=== PATIENT | female | born 1995 | race Caucasian/White ===

== ENCOUNTER 2019-02-12 17:22 | Emergency (ER) | payer OTHER ==
[~2019-02-12] VITALS: Ht 170.2 cm; Wt 108.9 kg
[~2019-02-12 17:22] MED LIST: OXCARBAZEPINE300 MG PO; SERTRALINE HCL50 MG PO; THIORIDAZINE HC50 M1 PO; TRAZODONE HCL50 MG
[2019-02-12 18:06] LABS: INFLUENZA A ANTIGEN Negative (Negative); INFLUENZA B ANTIGEN Negative (Negative)
[2019-02-12] MEDS ORDERED: AZITHROMYCIN500 MG PO ×2 (19:02→19:17)
[2019-02-12] MEDS ORDERED: CIPROFLOXIN HC2.5 M1 OPHTHALMIC ×2 (19:02→19:17)
[2019-02-12 19:05] VITALS: BP 115/80
== END 2019-02-12 19:06 | disposition home or self-care (01) ==
LOC: M.ERS 17:22
PROVIDERS: Nurse Practitioner Family
DX: J06.9 Acute upper respiratory infection, unspecified (principal); H10.9 Unspecified conjunctivitis; F31.9 Bipolar disorder, unspecified; F90.9 Attention-deficit hyperactivity disorder, unspecified type; F17.210 Nicotine dependence, cigarettes, uncomplicated; Z98.890 Other specified postprocedural states

== ENCOUNTER 2019-12-17 10:45 | Emergency (ER) | payer OTHER ==
[~2019-12-17] VITALS: Ht 170.2 cm; Wt 98.0 kg
[~2019-12-17 10:45] MED LIST changes: +AZITHROMYCIN500 MG PO; +CIPROFLOXIN HC2.5 M1 OPHTHALMIC
[2019-12-17 11:05] LABS: ABSOLUTE BASOPHILS 0.1 thou/uL (0.0-0.2); ABSOLUTE EOSINOPHILS 0.1 thou/uL (0.0-0.7); ABSOLUTE LYMPHOCYTES 1.7 thou/uL (0.8-5.3); ABSOLUTE MONOCYTES 0.4 thou/uL (0.0-1.2); ABSOLUTE NEUTROPHILS 4.2 thou/uL (1.6-8.1); BASOPHILS 0.9 %; EOSINOPHILS 2.1 %; HEMATOCRIT 45.4 % (37.0-47.0); HEMOGLOBIN 15.6 gm/dL (12.0-15.0); LYMPHOCYTES 25.7 %; MCH 28.4 pg (26.0-34.0); MCHC 34.3 g/dL (28.0-37.0); MCV 82.9 fL (80.0-100.0); MONOCYTES 5.5 %; MPV 13.1 fl. (7.2-11.1); NUCLEATED RBCS 0 /100WBC; PLATELET COUNT* 106 thou/uL (150-400); POLYS 65.8 %; RBC 5.48 mil/uL (4.20-5.00); WBC 6.4 thou/uL (4.0-11.0)
[2019-12-17 11:16] LABS: CREATININE 0.9 mg/dL (0.6-1.3)
[2019-12-17 11:18] LABS: TOTAL BILIRUBIN 0.3 mg/dL (<0.1-1.0); TOTAL PROTEIN 7.2 g/dL (6.4-8.2)
[2019-12-17 11:22] LABS: URINE BILIRUBIN NEGATIVE (Negative); URINE BLOOD 1+ (Negative); URINE CLARITY CLEAR; URINE COLOR YELLOW; URINE GLUCOSE-RANDOM NEGATIVE (Negative); URINE KETONES NEGATIVE (Negative); URINE LEUKOCYTES-REFLEX NEGATIVE (Negative); URINE NITRITE-REFLEX NEGATIVE (Negative); URINE PROTEIN NEGATIVE (Negative); URINE SPECIFIC GRAVITY >= 1.030 (1.005-1.030); URINE UROBILINOGEN 0.2 E.U./dl (0.2-1.0)
[2019-12-17 11:24] LABS: ALCOHOL < 10 mg/dL (<10)
[2019-12-17 11:25] LABS: ACETAMINOPHEN < 2 ug/mL (10-30)
[2019-12-17 11:29] LABS: AMP/METHAMP Negative (Negative); BARBITURATES Negative (Negative); BENZODIAZEPINES Negative (Negative); COCAINE Negative (Negative); METHADONE Negative (Negative); OPIATES Negative (Negative); PCP Negative (Negative); THC POSITIVE (Negative)
[2019-12-17 11:30] LABS: BACTERIA-REFLEX 1-9 Few /HPF (None Seen); SQUAMOUS >10 Many /LPF (0-3); URINE RBC 0-2 Rare /HPF (0-2); URINE WBC-REFLEX None Seen /HPF (0-5)
[2019-12-17 11:31] LABS: CASTS None Seen /LPF (None Seen); CRYSTALS None Seen /LPF (None Seen); MUCUS >6 Heavy strn/LPF (None Seen)
--- NOTE | 2019-12-18 10:27 | EKG ---
[place] [address] ELECTROCARDIOGRAM REPORT Name: CARMINE BILLINGS Room: [facility]#: [id number] Admission: 12/17/19 Attend Phys: Discharge: Date of : 89 Date of Service: 12/17/19 1049 Report #: [id number] THIS REPORT FOR: //name// [facility] ED Test Date: 2019-12-17 Test Time: 10:49:07 Pat Name: CARMINE BILLINGS Department: Room: Gender: F Film Maker: [facility] : 1995 Requested By: Elder Valladares Order Number: [id number] MD: Rudolph Stovall Measurements Intervals [place] Rate: 73 P: 17 ME: 157 QRS: 31 QRSD: 94 T: 24 QT: 388 QTc: 428 Interpretive Statements Sinus rhythm Borderline Q waves in lateral leads Baseline wander in lead(s) II,III,aVR,aVL,aVF,V1,V2,V5,V6 Compared to ECG 07/21/2013 16:26:08 Ectopic atrial rhythm no longer present T-wave abnormality no longer present Electronically Signed On 12-18-2019 10:26:49 CDT by Rudolph Stovall [email or web address] <ELECTRONICALLY SIGNED> By: Rudolph Stovall MD, [facility] 12/18/19 1026 1049 1049 Rudolph Stovall MD, [facility] /EPI
[2019-12-21 18:18] VITALS: BP 124/63
== END 2019-12-21 18:21 ==
LOC: M.ERS 10:45
PROVIDERS: Family Medicine
DX: T43.222A Poisoning by selective serotonin reuptake inhibitors, intentional self-harm, initial encounter (principal); Z20.828 Contact with and (suspected) exposure to other viral communicable diseases; R45.851 Suicidal ideations; F31.9 Bipolar disorder, unspecified; F90.9 Attention-deficit hyperactivity disorder, unspecified type; R11.2 Nausea with vomiting, unspecified; F12.90 Cannabis use, unspecified, uncomplicated; F17.210 Nicotine dependence, cigarettes, uncomplicated; Z79.2 Long term (current) use of antibiotics; Z90.89 Acquired absence of other organs; Y92.89 Other specified places as the place of occurrence of the external cause

== ENCOUNTER 2021-05-17 02:14 | Emergency (ER) | payer OTHER ==
[~2021-05-17] VITALS: Ht 170.2 cm; Wt 111.1 kg
[2021-05-17 03:09] LABS: ABSOLUTE LYMPHOCYTES 1.5 thou/uL (0.8-5.3)
[2021-05-17 03:10] LABS: URINE BILIRUBIN NEGATIVE (Negative); URINE BLOOD NEGATIVE (Negative); URINE CLARITY CLEAR; URINE COLOR YELLOW; URINE GLUCOSE-RANDOM NEGATIVE (Negative); URINE KETONES NEGATIVE (Negative); URINE LEUKOCYTES-REFLEX NEGATIVE (Negative); URINE NITRITE-REFLEX NEGATIVE (Negative); URINE PROTEIN TRACE (Negative); URINE SPECIFIC GRAVITY >= 1.030 (1.005-1.030); URINE UROBILINOGEN 0.2 E.U./dl (0.2-1.0)
[2021-05-17 03:11] LABS: HEMATOCRIT 42.8 % (37.0-47.0)
[2021-05-17 03:16] LABS: ABSOLUTE BASOPHILS 0.1 thou/uL (0.0-0.2); ABSOLUTE EOSINOPHILS 0.1 thou/uL (0.0-0.7); ABSOLUTE MONOCYTES 0.5 thou/uL (0.0-1.2); ABSOLUTE NEUTROPHILS 7.5 thou/uL (1.6-8.1); BASOPHILS 0.6 %; EOSINOPHILS 0.7 %; LYMPHOCYTES 15.6 %; MCH 28.9 pg (26.0-34.0); MCHC 35.2 g/dL (28.0-37.0); MCV 82.3 fL (80.0-100.0); MONOCYTES 5.6 %; MPV 11.9 fl. (7.2-11.1); NUCLEATED RBCS 0 /100WBC; PLATELET COUNT* 173 thou/uL (150-400); POLYS 77.5 %; RDW-CV 13.3 % (10.5-14.5); WBC 9.7 thou/uL (4.0-11.0)
[2021-05-17 03:20] LABS: ALBUMIN 4.1 g/dL (3.4-5.0); CALCIUM 8.8 mg/dL (8.5-10.1); CREATININE 0.6 mg/dL (0.6-1.3); TOTAL BILIRUBIN 0.4 mg/dL (<0.1-1.0); TOTAL PROTEIN 7.9 g/dL (6.4-8.2)
[2021-05-17 03:24] LABS: AMP/METHAMP Negative (Negative); BARBITURATES Negative (Negative); BENZODIAZEPINES Negative (Negative); COCAINE Negative (Negative); METHADONE Negative (Negative); OPIATES Negative (Negative); PCP Negative (Negative); THC Negative (Negative)
[2021-05-17 03:37] LABS: ALCOHOL 24 mg/dL (<10); SALICYLATE < 2.8 mg/dL (2.8-20.0)
[2021-05-17 03:38] LABS: ACETAMINOPHEN < 2 ug/mL (10-30)
[2021-05-17 15:25] VITALS: BP 118/76
== END 2021-05-17 15:59 | disposition still patient (30) ==
LOC: M.ERS 02:14
PROVIDERS: Emergency Medicine
DX: R45.851 Suicidal ideations (principal); Z20.822 Contact with and (suspected) exposure to COVID-19; F31.9 Bipolar disorder, unspecified; F17.210 Nicotine dependence, cigarettes, uncomplicated; Z90.89 Acquired absence of other organs